=== PATIENT | male | born 1960 | race Caucasian/White ===

== ENCOUNTER 2020-11-12 16:19 | Emergency (ER) | payer OTHER ==
[~2020-11-12] VITALS: Ht 175.3 cm; Wt 108.9 kg
--- NOTE | 2020-11-12 16:44 | ED Cardiac General ---
History of Present Illness General Chief Complaint: Cardiac/General Problems Stated Complaint: HIGH BLOOD PRESSURE Source: patient Exam Limitations: no limitations History of Present Illness Date Seen by Provider: Nov 12, 2020 Time Seen by Provider: 16:40 Initial Comments To ER with reports of high blood pressure. He began feeling dizzy a few days ago, general malaise. He had a cough with a history of pneumonia and was prescribed doxycycline. He has 4 days left of that. His blood pressure was found to be high at home after his called EMS for him this morning. It was about 180 systolic. He states he is only here to give his some peace of mind. Primary care is Billie Sam in [facility] but he has not seen her in a long time. He denies headache and overall feels okay. No fevers or chills. No Covid exposure. He also has some hearing loss with hearing aids that he purchased on his own several years ago but he would like to get set up with someone who can help him get hearing aids. His checked his blood sugar because she is a diabetic. Found his blood sugar to be about 230. 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 ASA po BUILDING MAINTENANCE SUPERINTENDENT: No Associated Systoms: Cough (I am) Allergies and Home Medications Allergies Coded Allergies: No Known Drug Allergies (Unverified , 11/12/20) Home Medications Amlodipine Besylate 5 Mg Tablet, 5 MG PO DAILY Prescribed by: CATRACHITA RILEY on 11/12/20 2495 Patient Home Medication List Home Medication List Reviewed: Yes Review of Systems Review of Systems Constitutional: see HPI; No chills, No fever, No malaise EENTM: No Symptoms Reported Respiratory: See HPI, Cough (The cough that he had has resolved) Cardiovascular: No Symptoms Reported Gastrointestinal: No Symptoms Reported Genitourinary: No Symptoms Reported Musculoskeletal: no symptoms reported Skin: no symptoms reported Psychiatric/Neurological: No Symptoms Reported Endocrine: No Symptoms Reported Hematologic/Lymphatic: No Symptoms Reported Past Mwdlnwz-Qukype-Rjirmc Hx Patient Social History Recent Foreign Travel: No Contact w/Someone Who Travel: No Physical Exam Vital Signs Vital Signs - First Documented 11/12/20 16:30 Pulse 84 Resp 20 B/P (MAP) 155/119 (131) Pulse Ox 95 O2 Delivery Room Air Capillary Refill : Height, Weight, BMI Height: '" Weight: lbs. oz. kg; BMI Method: General Appearance: No Apparent Distress, WD/WN Neck: Full Range of Motion, Normal Inspection Respiratory: Lungs Clear, Normal Breath Sounds, No Accessory Muscle Use, No Respiratory Distress Cardiovascular: Regular Rate, Rhythm, Normal Peripheral Pulses Gastrointestinal: Normal Bowel Sounds, Non Tender, Soft Extremity: Normal Capillary Refill, Normal Inspection Neurologic/Psychiatric: Alert, Oriented x3 Skin: Normal Color, Warm/Dry Progress/Results/Core Measures Results/Orders Lab Results Laboratory Tests Test 11/12/20 16:57 Range/Units White Blood Count 6.8 4.3-11.0 10^3/uL Red Blood Count 5.30 4.30-5.52 10^6/uL Hemoglobin 16.2 13.3-17.7 g/dL Hematocrit 47 40-54 % Mean Corpuscular Volume 89 80-99 fL Mean Corpuscular Hemoglobin 31 25-34 pg Mean Corpuscular Hemoglobin Concent 35 32-36 g/dL Red Cell Distribution Width 11.8 10.0-14.5 % Platelet Count 267 130-400 10^3/uL Mean Platelet Volume 10.4 9.0-12.2 fL Immature Granulocyte % (Auto) 0 % Neutrophils (%) (Auto) 56 42-75 % Lymphocytes (%) (Auto) 33 12-44 % Monocytes (%) (Auto) 8 0-12 % Eosinophils (%) (Auto) 2 0-10 % Basophils (%) (Auto) 1 0-10 % Neutrophils # (Auto) 3.8 1.8-7.8 10^3/uL Lymphocytes # (Auto) 2.2 1.0-4.0 10^3/uL Monocytes # (Auto) 0.6 0.0-1.0 10^3/uL Eosinophils # (Auto) 0.1 0.0-0.3 10^3/uL Basophils # (Auto) 0.1 0.0-0.1 10^3/uL Immature Granulocyte # (Auto) 0.0 0.0-0.1 10^3/uL Sodium Level 138 135-145 MMOL/L Potassium Level 4.1 3.6-5.0 MMOL/L Chloride Level 104 98-107 MMOL/L Carbon Dioxide Level 22 21-32 MMOL/L Anion Gap 12 5-14 MMOL/L Blood Urea Nitrogen 13 7-18 MG/DL Creatinine 0.90 0.60-1.30 MG/DL Estimat Glomerular Filtration Rate > 60 BUN/Creatinine Ratio 14 Glucose Level 130 H 70-105 MG/DL Calcium Level 8.9 8.5-10.1 MG/DL Corrected Calcium 8.6 8.5-10.1 MG/DL Total Bilirubin 0.3 0.1-1.0 MG/DL Aspartate Amino Transf (AST/SGOT) 26 5-34 U/L Alanine Aminotransferase (ALT/SGPT) 35 0-55 U/L Alkaline Phosphatase 79 40-136 U/L B-Type Natriuretic Peptide < 10.0 <100.0 PG/ML Total Protein 7.3 6.4-8.2 GM/DL Albumin 4.4 3.2-4.5 GM/DL My Orders Orders - CATRACHITA RILEY APRN Clonidine Tablet (Catapres Tablet) (11/12/20 16:45) Ekg Tracing (11/12/20 16:38) Cbc With Automated Diff (11/12/20 16:38) Comprehensive Metabolic Panel (11/12/20 16:38) BNP (11/12/20 16:38) Chest 1 View, Ap/Pa Only (11/12/20 16:44) Hemoglobin A1c (11/12/20 17:58) Medications Given in ED Current Medications Medications Dose Ordered Sig/Sivan Route Start Time Stop Time Status Last Admin Dose Admin Clonidine HCl 0.1 mg ONCE ONCE PO 11/12/20 16:45 11/12/20 16:46 DC 11/12/20 17:03 0.1 MG Vital Signs/I&O 11/12/20 11/12/20 16:30 18:02 Pulse 84 77 Resp 20 20 B/P (MAP) 155/119 (131) 151/98 Pulse Ox 95 95 O2 Delivery Room Air Room Air Departure Impression Primary Impression: Hypertension Disposition: 01 HOME, SELF-CARE Condition: Stable Departure-Patient Inst. Decision time for Depature: 16:42 Referrals: KELLY ASHTON MD NO,LOCAL PHYSICIAN (PCP) Primary Care Physician Patient Instructions: NO INSTRUCTIONS GIVEN Add. Discharge Instructions: 1. Return to ER for any concerns. Follow-up with your doctor next week. Emergency department focuses on treating and ruling out life-threatening diseases. Whenever possible, a diagnosis is given. However, most patients are given an impression based on their history, physical exam, and workup during your brief time in the ER. Information about probable diagnosis and other educational material has been provided. Please take the time to read and underst and this information. It is very important that you follow up with a physician as discussed during the visit today. Failure to adhere to your follow-up instructions may lead to severe disability, injury, or so please make sure to keep your appointments or obtain one as requested. All discharge instructions reviewed with patient and/or family. Voiced understanding. Scripts Amlodipine Besylate (Norvasc) 5 Mg Tablet 5 MG PO DAILY, #30 TAB Prov: CATRACHITA RILEY APRN 11/12/20 CATRACHITA RILEY APRN Nov 12, 2020 16:43
[2020-11-12] MEDS ORDERED: cloNIDine 0.1 MG (CATAPRES) TAB PO ONE (16:45)
[2020-11-12 17:15] LABS: ALBUMIN 4.4 GM/DL (3.2-4.5); BASOPHILS # (AUTO) 0.1 10^3/uL (0.0-0.1); BASOPHILS % (AUTO) 1 % (0-10); CHLORIDE 104 MMOL/L (98-107); EOSINOPHILS # (AUTO) 0.1 10^3/uL (0.0-0.3); EOSINOPHILS % (AUTO) 2 % (0-10); HEMATOCRIT 47 % (40-54); HEMOGLOBIN 16.2 g/dL (13.3-17.7); LYMPHOCYTES # (AUTO) 2.2 10^3/uL (1.0-4.0); LYMPHOCYTES % (AUTO) 33 % (12-44); MEAN CORPUSCULAR HEMOGLOBIN 31 pg (25-34); MEAN CORPUSCULAR HGB CONC 35 g/dL (32-36); MEAN CORPUSCULAR VOLUME 89 fL (80-99); MEAN PLATELET VOLUME 10.4 fL (9.0-12.2); MONOCYTES # (AUTO) 0.6 10^3/uL (0.0-1.0); MONOCYTES % (AUTO) 8 % (0-12); NEUTROPHILS # (AUTO) 3.8 10^3/uL (1.8-7.8); NEUTROPHILS % (AUTO) 56 % (42-75); PLATELET COUNT 267 10^3/uL (130-400); POTASSIUM 4.1 MMOL/L (3.6-5.0); SODIUM 138 MMOL/L (135-145); WHITE BLOOD COUNT 6.8 10^3/uL (4.3-11.0)
[2020-11-12 17:16] LABS: CALCIUM 8.9 MG/DL (8.5-10.1)
[2020-11-12 17:17] LABS: GLUCOSE 130 MG/DL (70-105)
[2020-11-12 17:18] LABS: TOTAL PROTEIN 7.3 GM/DL (6.4-8.2)
[2020-11-12 17:19] LABS: BILIRUBIN,TOTAL 0.3 MG/DL (0.1-1.0); CARBON DIOXIDE 22 MMOL/L (21-32)
[2020-11-12 17:21] LABS: ALKALINE PHOSPHATASE 79 U/L (40-136); GFR ESTIMATED > 60
[2020-11-12 17:22] LABS: BUN/CREATININE RATIO 14
[2020-11-12 17:24] LABS: ALANINE AMINOTRANSFERASE 35 U/L (0-55)
--- NOTE | 2020-11-12 17:25 | Diagnostic Imaging Report ---
EXAMINATION: Chest radiograph, portable AP view. DATE: 11/12/2020 5:22 PM INDICATION: 60-year-old male, cough. Hypertension. COMPARISON: None. FINDINGS: Heart size and mediastinal contours are unremarkable. There is no identified pneumothorax. There is no large pleural effusion. There is no identified focal airspace consolidation. There are technical limitations of the exam relating to patient body habitus and difficulties with exposure. IMPRESSION: No identified acute cardiopulmonary abnormality. Dictated by: Dictated on workstation # [id number]
[2020-11-12] MEDS ORDERED: AMLO5TAB4 PO (17:44)
[2020-11-12 18:02] VITALS: BP 151/98
== END 2020-11-12 18:02 | disposition home or self-care (01) ==
LOC: ER 16:23
DX: I10 Essential (primary) hypertension (principal); E11.9 Type 2 diabetes mellitus without complications; R05 Cough
CPT/HCPCS: 36415; 71045; 80053; 83036; 83880; 85025; 93005

== ENCOUNTER → 2022-12-22 | Outpatient (CLI) | payer OTHER ==
[~2022-12-22] MED LIST: AMLO5TAB4 PO
--- NOTE | 2022-12-22 17:21 | Diagnostic Imaging Report ---
INDICATION: Back pain EXAMINATION: Lumbar spine 12/22/2022. FINDINGS: 5 views of the lumbar spine. There is a normal height and alignment of the vertebral bodies. Intervertebral space narrowing and spurring noted at L4-L5. There is facet hypertrophy at the L4-L5 and L5-S1 levels. No acute abnormalities. Soft tissues unremarkable. IMPRESSION: 1. Chronic findings predominantly at L4-L5 and L5-S1. No acute osseous abnormality. Dictated by: Dictated on workstation # [id number]
== END ==
LOC: ORTHO 09:25
PROVIDERS: ATTEND Orthopaedic Surgery
DX: M54.50 Low back pain, unspecified (principal)
CPT/HCPCS: 72110; 99203

== ENCOUNTER → 2023-01-16 | Outpatient (CLI) | payer OTHER ==
--- NOTE | 2023-01-16 16:37 | Diagnostic Imaging Report ---
PROCEDURE: MRI lumbar spine without contrast. TECHNIQUE: Multiplanar, multisequence MRI of the lumbar spine was performed without contrast. INDICATION: Low back pain. COMPARISON: 12/22/2022. FINDINGS: 5 lumbar type vertebral bodies are visualized with the last well-formed disc space designated L5-S1. No acute fracture or dislocation is seen in the lumbar spine. Alignment is anatomic. Vertebral body heights and disc spaces are well-maintained. The bone marrow signal is normal. The conus terminates at the L1 level. No masses are seen associated with the conus or nerve roots of the cauda equina. No epidural collections are identified. Multilevel degenerative changes are seen in the lumbar spine with disc bulges, facet hypertrophy, and buckling of the ligamentum flavum. T12-L1: No significant spinal canal or foraminal stenosis. L1-L2: No significant spinal canal or foraminal stenosis. L2-L3: No significant spinal canal or foraminal stenosis. L3-L4: Broad-based disc bulge, facet hypertrophy, and buckling of ligamentum flavum results in moderate to severe spinal canal stenosis and moderate bilateral foraminal stenosis. L4-L5: Broad-based disc bulge, facet hypertrophy, and buckling of the ligamentum flavum results in severe spinal canal stenosis and moderate to severe bilateral foraminal stenosis. L5-S1: Facet hypertrophy and buckling of the ligamentum flavum results in mild spinal canal narrowing and no right and mild left foraminal narrowing. Paravertebral soft tissues are unremarkable. IMPRESSION: 1. No acute fracture or dislocation in the lumbar spine. 2. Multilevel degenerative changes in the lumbar spine, greatest at L3-L4, L4-L5 and L5-S1. Dictated by: Dictated on workstation # [id number]
== END ==
LOC: RAD 14:22
PROVIDERS: ATTEND Orthopaedic Surgery
DX: M47.816 Spondylosis without myelopathy or radiculopathy, lumbar region (principal); M47.817 Spondylosis without myelopathy or radiculopathy, lumbosacral region; M51.26 Other intervertebral disc displacement, lumbar region; M48.061 Spinal stenosis, lumbar region without neurogenic claudication
CPT/HCPCS: 72148

== ENCOUNTER 2023-04-25 02:18 | Emergency (ER) | payer OTHER ==
[~2023-04-25] VITALS: Ht 177.8 cm; Wt 112.0 kg
[2023-04-25 02:33] VITALS: BP 138/102
[2023-04-25] MEDS ORDERED: DICYCLOMINE 10 MG (BENTYL) CAP PO STA (02:37)
--- NOTE | 2023-04-25 02:37 | ED GI ---
General Chief Complaint: Abdominal/GI Problems Stated Complaint: ABD PAIN Source of Information: Patient, Family () Exam Limitations: No Limitations History of Present Illness Date Seen by Provider: Apr 25, 2023 Time Seen by Provider: 02:29 Initial Comments 62-year-old male presents emergency department today for abdominal bloating. He was concerned tonight because his bloating got so bad that he took some baking soda. After this he states "I immediately regretted it." He states his voiding dramatically worse and he felt like "I was going to explode." He finally had a forceful bout of emesis that was nonbloody and nonbilious and the pressure relieved. He does still feel like he is abdomen is bloated but denies any focal abdominal pain. No nausea or vomiting outside of that episode with the baking soda. He has not seen his primary care doctor for the symptoms. Interestingly his symptoms did seem to start about a week after he started Ozempic for diabe shakira. No change in bowel or bladder habits. His symptoms typically seem to be about worse at night. All other systems reviewed and negative except documented per HPI. Voice recognition software was used to help create this chart Allergies and Home Medications Allergies Coded Allergies: No Known Drug Allergies (Unverified , 11/12/20) Patient Home Medication List Home Medication List Reviewed: Yes Amlodipine Besylate (Norvasc) 5 Mg Tablet, 5 MG PO DAILY Prescribed by: CATRACHITA RILEY on 11/12/201743 Review of Systems Review of Systems Constitutional: see HPI Past Jsuhtzc-Uyxysd-Knpkcb Hx Patient Social History Tobacco Use?: No Use of E-Cig and/or Vaping dev: No Substance use?: No Alcohol Use?: No Immunizations Up To Date Tetanus Booster (TDap): Unknown Seasonal Allergies Seasonal Allergies: No Past Medical History Surgeries: Yes (CERVICAL FUSION, L ELBOW, L HAND/WRIST, L SHOULDER, BILATERAL KNEE) Orthopedic Respiratory: Yes Pneumonia Cardiac: Yes Hypertension Neurological: No Genitourinary: No Gastrointestinal: No Musculoskeletal: No Endocrine: No HEENT: No Cancer: No Psychosocial: No Blood Disorders: No Physical Exam Vital Signs Capillary Refill : Height/Weight/BMI Height: '" Weight: lbs. oz. kg; 35.00 BMI Method: General Appearance: WD/WN, no apparent distress HEENT: normal ENT inspection, pharynx normal Neck: non-tender, supple, normal inspection Respiratory: chest non-tender, lungs clear, normal breath sounds, no respiratory distress, no accessory muscle use Cardiovascular: regular rate, rhythm, no edema, no gallop, no JVD, no murmur Gastrointestinal: normal bowel sounds, non tender, soft, no organomegaly Extremities: normal range of motion, non-tender, normal inspection, no pedal edema Progress/Results/Core Measures Results/Orders My Orders Orders - LENNY HALEY DO Dicyclomine Capsule (Bentyl Capsule) (04/25/23 02:37) Departure Impression Primary Impression: Abdominal bloating Disposition: HOME, SELF-CARE Condition: Stable Departure-Patient Inst. Referrals: NO,LOCAL PHYSICIAN (PCP/Family) Primary Care Physician Patient Instructions: Abdominal Pain, Adult ED Add. Discharge Instructions: Take Bentyl as prescribed as needed. Follow-up with your primary doctor should your symptoms persist. Return to the emergency department for any severe concerns. All discharge instructions reviewed with patient and/or family. Voiced understanding. LENNY HALEY DO Apr 25, 2023 02:37
[2023-04-25] MEDS ORDERED: DICY20TA PO (02:57)
== END 2023-04-25 03:01 | disposition home or self-care (01) ==
LOC: EDUNIT# 02:18 → ER 02:21
DX: R14.0 Abdominal distension (gaseous) (principal); E11.9 Type 2 diabetes mellitus without complications; Z79.84 Long term (current) use of oral hypoglycemic drugs
CPT/HCPCS: 99283